=== PATIENT | female | born 1975 | race Caucasian/White ===

== ENCOUNTER → 2016-08-19 | Outpatient (CLI) | payer BC ==
[~2016-08-19] MED LIST: ALDACTONE50 MG PO; ALLEGRA-D 24HOU1 T24 PO; CEPHALEXIN250 M1 PO; FLONASE NASAL S16 GM NS; MINOCYCLIN100 MG/CAP PO; MULTIPLE VITAMI1 CAP PO; [UNRECOGNIZED DRUG - OTHER] TP
== END ==
LOC: MC.RAD 14:40
DX: Z12.31 Encounter for screening mammogram for malignant neoplasm of breast (principal)

== ENCOUNTER → 2018-11-08 | Outpatient (CLI) | payer BC | LOC: MC.RAD 07:00 | DX: Z12.31 Encounter for screening mammogram for malignant neoplasm of breast (principal) ==

== ENCOUNTER → 2021-08-26 | Outpatient (CLI) | payer BC | LOC: MC.RAD 07:06 | DX: Z12.31 Encounter for screening mammogram for malignant neoplasm of breast (principal); N64.89 Other specified disorders of breast ==

== ENCOUNTER → 2021-08-31 | Outpatient (CLI) | payer BC | LOC: MC.RAD 06:52 | DX: N64.89 Other specified disorders of breast (principal) ==